=== PATIENT | male | born 1980 | race Caucasian/White ===

== ENCOUNTER 2016-12-17 08:15 | Inpatient (IN) | payer BC, OTHER ==
[2016-12-17] MEDS ORDERED: Sodium Chloride 0.9% 2.5 ML Syringe FLUSH PRN (08:24)
[2016-12-17] MEDS ORDERED: Sodium Chloride 0.9% 1,000 ML IV ONE (08:24)
[2016-12-17] MEDS ORDERED: Sodium Chloride 0.9% 10 ML Syringe FLUSH PRN (08:24)
[2016-12-17] MEDS ORDERED: Pantoprazole 40 MG Vial IVPUSH ONE (08:24)
[2016-12-17] MEDS ORDERED: Pantoprazole 80 MG in Sodium Chloride 0.9% 100 ML IV SCH (08:30)
--- NOTE | 2016-12-17 08:31 | EDM.PDOC ---
ED HPI GENERAL MEDICAL PROBLEM - General Chief Complaint: Abdominal Pain Stated Complaint: stomach ulcers Time Seen by Provider: 12/17/16 08:23 - History of Present Illness INITIAL COMMENTS - FREE TEXT/NARRATIVE: HISTORY AND PHYSICAL: History of present illness: The patient is a 36-year-old male with a history of peptic ulcer disease since 2006 and has had multiple endoscopies since that time and has had a blood transfusion and presents with complaints of black/maroon stools that started on Thursday, 3 days ago. The patient was seen in our clinic 2 days ago for similar symptoms and had a hemoglobin of 10.1. He has had multiple endoscopies at a variety of locations including [facility] in [place] here at [facility] and at the [facility]. He had a pill study performed earlier this year in April at [place] and says that his provider in the clinic has all those results. He is currently on a regimen of omeprazole and sucralfate. The patient does not drink caffeinated products or take aspirin based products and does not drink alcohol. The patient says that starting on Thursday he had dark stools which when they were in the water in the toilet had blood from them. He's had no nausea or vomiting and no abdominal pain with this. He's had no chest pain or shortness of breath but today he was very sweaty and then he had a brief syncopal event. Patient denies any trauma as a result of the syncopal event. Patient has only had one bowel movement a day until yesterday and he had 2 bowel movements and it is not diarrhea. Patient denies any neurosensory changes or weakness in his extremities but he says he looks very pale and he feels very weak in a generalized fashion. As a result of the syncope has no head neck or back pain and no extremity complaints. Currently in the ED laying in the bed he feels asymptomatic except for just some generalized weakness Review of systems: As per history of present illness and below otherwise all systems reviewed and negative. Past medical history: As per history of present illness and as reviewed below otherwise noncontributory. Surgical history: As per history of present illness and as reviewed below otherwise noncontributory. Social history: No reported history of drug or alcohol abuse. Family history: As per history of present illness and as reviewed below otherwise noncontributory. Physical exam: Gen.: Well-developed well-nourished man who is very tall and lean and very pale appearing. He speaking clearly and easily in the ED and vital signs have been noted by me. HEENT: Atraumatic, normocephalic, pupils reactive, negative for scleral icterus , there is profound conjunctival pallor, mucous membranes moist, throat clear, neck supple, nontender, trachea midline. There are no midline step-offs in his defects of the cervical spine Lungs: Clear to auscultation, breath sounds equal bilaterally, chest nontender. Heart: S1S2, regular rhythm and slightly tachycardic rate on my evaluation, negative for clicks, rubs, or JVD. Abdomen: Soft, nondistended, nontender. There is no rebound or guarding and bowel sounds are normoactive. There is absolutely no tenderness on palpation. Negative for masses or hepatosplenomegaly. Negative for costovertebral tenderness. Pelvis: Stable nontender. Genitourinary: Deferred. Rectal: Deferred. Extremities: Atraumatic, negative for cords or calf pain. Neurovascular unremarkable. Neuro: Awake, alert, oriented. Cranial nerves II through XII unremarkable. Cerebellum unremarkable. Motor and sensory unremarkable throughout. Exam nonfocal. Skin: Normal turgor, very pale in coloration and no rashes or lesions. There is no evidence of any soft tissue injury visible on the trunk or the extremities/ head and neck as a result of the syncope Back: There are no midline step-offs in his defects of the thoracic or lumbar spine and no evidence of any abrasions contusions or skin changes Diagnostics: EKG, CBC CMP INR troponin chest x-ray type and screen/type and cross Therapeutics: IV O2 monitor IV fluids protonic bolus protonic drip blood transfusion 0910: This case was discussed with our surgeon adoption services manager Dr. Keenan who feels that the patient can remain here, be admitted to the hospitalist service, received blood transfusion and he will plan on doing an endoscopy. He will do a formal consult later today. The patient is aware of this conversation and the care plan and is comfortable with that. I will discuss the case with the hospitalist. 0955: Dr. Narvaez is in the ER evaluating the patient and accepts them for inpatient admission to telemetry. Critical care time excluding procedures:31min Impression: Upper GI bleed with history of same, symptomatic anemia with syncope Definitive disposition and diagnosis as appropriate pending reevaluation and review of above. - Related Data Allergies Allergy/AdvReac Type Severity Reaction Status Date / Time No Known Allergies Allergy Verified 12/17/16 08:17 Home Meds: Home Meds Albuterol Sulfate [Proair Hfa] 2 puff INH QID PRN 04/22/16 [History] Omeprazole 40 mg PO DAILY 04/22/16 [History] Sucralfate 1 tab PO QID 04/22/16 [History] Past Medical History HEENT History: Reports: Other (See Below) Other HEENT History: wears glasses, has upper and lower dentures (does not wear ) Other Cardiovascular History: recent tachycardia from anemia Respiratory History: Reports: SOB, Other (See Below) Other Respiratory History: [id number] deficiency, has been SOB from recent anemia Gastrointestinal History: Reports: GERD, PUD Genitourinary History: Reports: None Musculoskeletal History: Reports: None Neurological History: Reports: None Psychiatric History: Reports: None Endocrine/Metabolic History: Reports: None Hematologic History: Reports: Anemia, Blood Transfusion(s) Other Hematologic History: recently had 2 units transfused Immunologic History: Reports: None Oncologic (Cancer) History: Reports: None Dermatologic History: Reports: None - Past Surgical History Head Surgeries/Procedures: Reports: None HEENT Surgical History: Reports: None Cardiovascular Surgical History: Reports: None Respiratory Surgical History: Reports: None GI Surgical History: Reports: EGD Male Surgical History: Reports: None Endocrine Surgical History: Reports: None Neurological Surgical History: Reports: None Musculoskeletal Surgical History: Reports: None Oncologic Surgical History: Reports: None Social & Family History - Tobacco Use Smoking Status *Q: Never Smoker - Recreational Drug Use Recreational Drug Use: No Drug Use in Last 12 Months: No ED ROS GENERAL - Review of Systems Review Of Systems: ROS reveals no pertinent complaints other than HPI. ED EXAM, GENERAL - Physical Exam Exam: See Below (See dictation) Course - Vital Signs Last Recorded V/S: Last Vital Signs Temp 36.0 C 12/17/16 08:18 Pulse 102 H 12/17/16 08:18 Resp 14 12/17/16 09:30 BP 111/65 12/17/16 09:30 Pulse Ox 100 12/17/16 09:30 - Orders/Labs/Meds Orders: Active Orders 24 hr Category Date Time Status Patient Status [ADT] Stat ADT 12/17/16 09:57 Ordered Cardiac Monitoring [RC] . DIRECTED Care 12/17/16 08:24 Active EKG Documentation Completion [RC] STAT Care 12/17/16 08:24 Active Notify Provider Consults [RC] ASDIRECTED Care 12/17/16 09:29 Active Oxygen Therapy, ED [RC] ASDIRECTED Care 12/17/16 08:24 Active Pulse Oximetry [RC] ASDIRECTED Care 12/17/16 08:24 Active Consult to Physician [CONS] Stat Cons 12/17/16 09:29 Active RED BLOOD CELLS LP [BBK] Stat Lab 12/17/16 08:45 Results TYPE AND SCREEN [BBK] Stat Lab 12/17/16 08:45 Results Pantoprazole [ProTONIX IV] 80 mg Med 12/17/16 09:15 Active Sodium Chloride 0.9% [Normal Saline] 100 ml IV Q10H Sodium Chloride 0.9% [Saline Flush] Med 12/17/16 08:24 Active 10 ml FLUSH ASDIRECTED PRN Sodium Chloride 0.9% [Saline Flush] Med 12/17/16 08:24 Active 2.5 ml FLUSH ASDIRECTED PRN Saline Lock Insert [OM.PC] Stat Oth 12/17/16 08:24 Ordered Transfuse Red Blood Cells [COMM] Stat Oth 12/17/16 09:09 Ordered Medication Orders Pantoprazole Sodium 80 mg/ (Sodium Chloride) 100 mls @ 10 mls/hr IV Q10H KOBE Last Admin: 12/17/16 09:23 Dose: 10 mls/hr Sodium Chloride (Saline Flush) 10 ml FLUSH ASDIRECTED PRN PRN Reason: Keep Vein Open Sodium Chloride (Saline Flush) 2.5 ml FLUSH ASDIRECTED PRN PRN Reason: Keep Vein Open Labs: Laboratory Tests 12/17/16 12/17/16 12/17/16 Range/Units 08:45 08:45 08:45 WBC 8.47 (4.0-11.0) K/uL RBC 2.16 L (4.50-5.90) M/uL Hgb 6.6 L (13.0-17.0) g/dL Hct 19.5 L (38.0-50.0) % MCV 90.3 (80.0-98.0) fL MCH 30.6 (27.0-32.0) pg MCHC 33.8 (31.0-37.0) g/dL RDW Std Deviation 45.7 (28.0-62.0) fl RDW Coeff of Gissell 14 (11.0-15.0) % Plt Count 244 (150-400) K/uL MPV 9.50 (7.40-12.00) fL Neut % (Auto) 60.3 (48.0-80.0) % Lymph % (Auto) 31.6 (16.0-40.0) % [place] % (Auto) 3.7 (0.0-15.0) % Eos % (Auto) 2.6 (0.0-7.0) % Baso % (Auto) 1.8 H (0.0-1.5) % Neut # (Auto) 5.1 (1.4-5.7) K/uL Lymph # (Auto) 2.7 H (0.6-2.4) K/uL [place] # (Auto) 0.3 (0.0-0.8) K/uL Eos # (Auto) 0.2 (0.0-0.7) K/uL Baso # (Auto) 0.2 H (0.0-0.1) K/uL Nucleated RBC % 0.0 /100WBC Nucleated RBCs # 0 K/uL INR 1.06 (0.86-1.11) Sodium 137 (136-146) mmol/L Potassium 3.7 (3.5-5.1) mmol/L Chloride 110 (98-110) mmol/L Carbon Dioxide 22 (21-31) mmol/L BUN 37 H (6.0-23.0) mg/dL Creatinine 0.9 (0.6-1.5) mg/dL Est Cr Clr Drug Dosing 138.23 mL/min Estimated GFR (MDRD) > 60.0 ml/min Glucose 157 H (60-110) mg/dL Calcium 7.9 L (8.8-10.8) mg/dL Total Bilirubin 0.2 (0.1-1.5) mg/dL AST 11 (5-40) IU/L ALT 10 (8-54) IU/L Alkaline Phosphatase 31 L (40-150) Troponin I (0.0-0.29) NG/ML Total Protein 5.4 L (6.0-8.0) g/dL Albumin 3.1 L (3.5-5.0) g/dL Globulin 2.3 (2.0-3.5) g/dL Albumin/Globulin Ratio 1.4 (1.3-2.8) Blood Type Antibody Screen Crossmatch 12/17/16 12/17/16 Range/Units 08:45 08:45 WBC (4.0-11.0) K/uL RBC (4.50-5.90) M/uL Hgb (13.0-17.0) g/dL Hct (38.0-50.0) % MCV (80.0-98.0) fL MCH (27.0-32.0) pg MCHC (31.0-37.0) g/dL RDW Std Deviation (28.0-62.0) fl RDW Coeff of Gissell (11.0-15.0) % Plt Count (150-400) K/uL MPV (7.40-12.00) fL Neut % (Auto) (48.0-80.0) % Lymph % (Auto) (16.0-40.0) % [place] % (Auto) (0.0-15.0) % Eos % (Auto) (0.0-7.0) % Baso % (Auto) (0.0-1.5) % Neut # (Auto) (1.4-5.7) K/uL Lymph # (Auto) (0.6-2.4) K/uL [place] # (Auto) (0.0-0.8) K/uL Eos # (Auto) (0.0-0.7) K/uL Baso # (Auto) (0.0-0.1) K/uL Nucleated RBC % /100WBC Nucleated RBCs # K/uL INR (0.86-1.11) Sodium (136-146) mmol/L Potassium (3.5-5.1) mmol/L Chloride (98-110) mmol/L Carbon Dioxide (21-31) mmol/L BUN (6.0-23.0) mg/dL Creatinine (0.6-1.5) mg/dL Est Cr Clr Drug Dosing mL/min Estimated GFR (MDRD) ml/min Glucose (60-110) mg/dL Calcium (8.8-10.8) mg/dL Total Bilirubin (0.1-1.5) mg/dL AST (5-40) IU/L ALT (8-54) IU/L Alkaline Phosphatase (40-150) Troponin I < 0.10 (0.0-0.29) NG/ML Total Protein (6.0-8.0) g/dL Albumin (3.5-5.0) g/dL Globulin (2.0-3.5) g/dL Albumin/Globulin Ratio (1.3-2.8) Blood Type A POSITIVE Antibody Screen NEGATIVE Crossmatch See Detail Meds: Medications Generic Name Dose Route Start Last Admin Trade Name Freq PRN Reason Stop Dose Admin Pantoprazole Sodium 80 mg/ 100 mls @ 10 mls/hr 12/17/16 09:15 12/17/16 09:23 Sodium Chloride IV 10 mls/hr Q10H KOBE Administration Sodium Chloride 10 ml 12/17/16 08:24 Saline Flush FLUSH ASDIRECTED PRN Keep Vein Open Sodium Chloride 2.5 ml 12/17/16 08:24 Saline Flush FLUSH ASDIRECTED PRN Keep Vein Open Discontinued Medications Generic Name Dose Route Start Last Admin Trade Name Freq PRN Reason Stop Dose Admin Sodium Chloride 1,000 mls @ 999 mls/hr 12/17/16 08:24 12/17/16 08:35 Normal Saline IV 12/17/16 09:24 999 mls/hr STAT ONE Administration Pantoprazole Sodium 80 mg/ 100 mls @ 10 mls/hr 12/17/16 08:30 Sodium Chloride IV .Continuous KOBE Pantoprazole Sodium 80 mg 12/17/16 08:24 12/17/16 09:01 Protonix Iv IVPUSH 12/17/16 08:25 80 mg .BOLUS ONE Administration Departure - Departure Time of Disposition: 10:00 Disposition: Admitted As Inpatient 68 Condition: Good Clinical Impression: Upper GI bleeding, Symptomatic anemia - Discharge Information Referrals: Leonid Cartagena MD [Primary Care Provider] - Forms: ED Department Discharge - My Orders Last 24 Hours: My Active Orders 12/17/16 08:24 Cardiac Monitoring [RC] . DIRECTED EKG Documentation Completion [RC] STAT Oxygen Therapy, ED [RC] ASDIRECTED Pulse Oximetry [RC] ASDIRECTED Sodium Chloride 0.9% [Saline Flush] 10 ml FLUSH ASDIRECTED PRN Sodium Chloride 0.9% [Saline Flush] 2.5 ml FLUSH ASDIRECTED PRN Saline Lock Insert [OM.PC] Stat 12/17/16 08:45 RED BLOOD CELLS LP [BBK] Stat TYPE AND SCREEN [BBK] Stat 12/17/16 09:09 Transfuse Red Blood Cells [COMM] Stat 12/17/16 09:15 Pantoprazole [ProTONIX IV] 80 mg Sodium Chloride 0.9% [Normal Saline] 100 ml IV Q10H 12/17/16 09:29 Notify Provider Consults [RC] ASDIRECTED Consult to Physician [CONS] Stat 12/17/16 09:57 Patient Status [ADT] Stat - Assessment/Plan Last 24 Hours: My Active Orders 12/17/16 08:24 Cardiac Monitoring [RC] . DIRECTED EKG Documentation Completion [RC] STAT Oxygen Therapy, ED [RC] ASDIRECTED Pulse Oximetry [RC] ASDIRECTED Sodium Chloride 0.9% [Saline Flush] 10 ml FLUSH ASDIRECTED PRN Sodium Chloride 0.9% [Saline Flush] 2.5 ml FLUSH ASDIRECTED PRN Saline Lock Insert [OM.PC] Stat 12/17/16 08:45 RED BLOOD CELLS LP [BBK] Stat TYPE AND SCREEN [BBK] Stat 12/17/16 09:09 Transfuse Red Blood Cells [COMM] Stat 12/17/16 09:15 Pantoprazole [ProTONIX IV] 80 mg Sodium Chloride 0.9% [Normal Saline] 100 ml IV Q10H 12/17/16 09:29 Notify Provider Consults [RC] ASDIRECTED Consult to Physician [CONS] Stat 12/17/16 09:57 Patient Status [ADT] Stat
[2016-12-17 09:15] LABS: CHLORIDE,CL 110 mmol/L (98-110); SODIUM,NA 137 mmol/L (136-146)
[2016-12-17] MEDS: Pantoprazole 80 MG in Sodium Chloride 0.9% 100 ML IV SCH ×2 (09:23→20:01)
--- NOTE | 2016-12-17 09:32 | CR ---
EXAMINATION: Portable chest radiograph. HISTORY: Shortness of breath. FINDINGS: The trachea is midline. The cardiomediastinal silhouette is within normal limits. No pulmonary infilt rates, effusions or pneumothorax. Osseous structures appear unremarkable. IMPRESSION: No acute cardiopulmonary process.
[2016-12-17] MEDS ORDERED: Morphine 2 MG/ML Syringe IVPUSH PRN (10:18)
[2016-12-17] MEDS ORDERED: oxyCODONE 5 MG Tab PO PRN (10:18)
[2016-12-17] MEDS ORDERED: Acetaminophen 325 MG Tab PO PRN (10:18)
[2016-12-17] MEDS ORDERED: Ondansetron 8 MG Tab.DIS PO PRN (10:18)
[2016-12-17] MEDS ORDERED: Temazepam 15 MG Cap PO PRN (10:18)
[2016-12-17] MEDS ORDERED: Albuterol 8 GM Inhaler INH PRN (10:22)
--- NOTE | 2016-12-17 10:44 | PCM.HP ---
H&P History of Present Illness - General Admit Problem/Dx: Admission Diagnosis/Problem Admission Diagnosis/Problem Upper gastrointestinal hemorrhage Hemoglobin 6.6 g/dL, syncopal episode Source of Information: Patient, Family History Limitations: Reports: No Limitations - History of Present Illness Onset of Symptoms: Reports: Gradual Duration of Symptoms: Reports: Day(s):, Chronic Location: Reports: Abdomen Severity: Mild Improves with: Reports: None Worsens with: Reports: None Associated Symptoms: Reports: Syncope, Other (Dizziness) - Related Data Allergies/Adverse Reactions: Allergies Allergy/AdvReac Type Severity Reaction Status Date / Time No Known Allergies Allergy Verified 12/17/16 08:17 Home Medications: Home Meds Albuterol Sulfate [Proair Hfa] 2 puff INH QID PRN 04/22/16 [History] Omeprazole 40 mg PO DAILY 04/22/16 [History] Sucralfate 1 tab PO QID 04/22/16 [History] Past Medical History HEENT History: Reports: Other (See Below) Other HEENT History: wears glasses, has upper and lower dentures (does not wear ) Cardiovascular History: Reports: None Other Cardiovascular History: recent tachycardia from anemia Respiratory History: Reports: SOB, Other (See Below) Other Respiratory History: [id number] deficiency, has been SOB from recent anemia Gastrointestinal History: Reports: GERD, GI Bleed, PUD Genitourinary History: Reports: None Musculoskeletal History: Reports: None Neurological History: Reports: None Psychiatric History: Reports: None Endocrine/Metabolic History: Reports: None Hematologic History: Reports: Anemia, Blood Transfusion(s) Other Hematologic History: recently had 2 units transfused Immunologic History: Reports: None Oncologic (Cancer) History: Reports: None Dermatologic History: Reports: None - Past Surgical History Head Surgeries/Procedures: Reports: None HEENT Surgical History: Reports: None Cardiovascular Surgical History: Reports: None Respiratory Surgical History: Reports: None GI Surgical History: Reports: EGD Male Surgical History: Reports: None Endocrine Surgical History: Reports: None Neurological Surgical History: Reports: None Musculoskeletal Surgical History: Reports: None Oncologic Surgical History: Reports: None Social & Family History - Family History Family Medical History: Noncontributory - Tobacco Use Smoking Status *Q: Never Smoker - Caffeine Use Caffeine Use: Reports: None - Alcohol Use Alcohol Use History: Yes Alcohol Use Frequency: Rarely - Recreational Drug Use Recreational Drug Use: No Drug Use in Last 12 Months: No H&P Review of Systems - Review of Systems: Review Of Systems: See Below General: Reports: Weakness, Fatigue HEENT: Reports: No Symptoms Pulmonary: Reports: Shortness of Breath Cardiovascular: Reports: Syncope Gastrointestinal: Reports: Black Stool, Bloody Stool, Decreased Appetite, Nausea Genitourinary: Reports: No Symptoms Musculoskeletal: Reports: No Symptoms Skin: Reports: No Symptoms Psychiatric: Reports: No Symptoms Neurological: Reports: Dizziness Hematologic/Lymphatic: Reports: Anemia, Easy Bleeding Immunologic: Reports: No Symptoms Exam - Exam Exam: See Below - Vital Signs Vital Signs: Last Vital Signs Temp 36.6 C 12/17/16 10:04 Pulse 102 H 12/17/16 08:18 Resp 18 12/17/16 10:04 BP 130/65 12/17/16 10:04 Pulse Ox 98 12/17/16 10:04 Weight: 90.718 kg - Exam Quality Assessment: No: Supplemental Oxygen General: Alert, Oriented, Cooperative HEENT: Conjunctiva Clear, EOMI. No: Mucosa Moist & [place] (Pale conjunctiva and oral mucosa) Neck: Supple, Trachea Midline Lungs: Clear to Auscultation, Normal Respiratory Effort Cardiovascular: Regular Rhythm, Tachycardia GI/Abdominal Exam: Normal Bowel Sounds, Soft, Non-Tender, No Distention Rectal (Males) Exam: Black Stool Back Exam: Normal Inspection Extremities: Normal Inspection, No Pedal Edema Skin: Warm, Dry Neurological: Cranial Nerves Intact Neuro Extensive - Mental Status: Alert, Oriented x3 Psychiatric: Alert, Normal Affect, Normal Mood - Patient Data Result Diagrams: 12/17/16 08:45 12/17/16 08:45 *Q Meaningful Use (ADM) - VTE *Q VTE Criteria *Q: VTE Pharmacological Contraindications *Q: Active Hemorrhage - Stroke *Q Stroke Criteria *Q: - AMI *Q AMI Criteria *Q: - Problem List (1) Duodenitis with hemorrhage SNOMED Code(s): 34574196 ICD Code: K29.81 - DUODENITIS WITH BLEEDING Status: Chronic Priority: High Current Visit: Yes (2) Chronic hemorrhagic anemia SNOMED Code(s): 685340242 ICD Code: D50.0 - IRON DEFICIENCY ANEMIA SECONDARY TO BLOOD LOSS (CHRONIC) Status: Chronic Priority: High Current Visit: Yes (3) Syncope and collapse SNOMED Code(s): 692522155 ICD Code: R55 - SYNCOPE AND COLLAPSE Status: Acute Priority: High Current Visit: Yes Problem List Initiated/Reviewed/Updated: Yes Orders Last 24hrs: Active Orders 24 hr Category Date Time Status Patient Status [ADT] Routine ADT 12/17/16 10:18 Active Oxygen Therapy [RC] PRN Care 12/17/16 10:18 Active Up With Assistance [RC] ASDIRECTED Care 12/17/16 10:18 Active VTE/DVT Education [RC] PER UNIT ROUTINE Care 12/17/16 10:18 Active Vital Signs [RC] Q4H Care 12/17/16 10:18 Active Clear Liquid Diet [DIET] Diet 12/17/16 Lunch Active Acetaminophen [Tylenol] Med 12/17/16 10:18 Active 650 mg PO Q4H PRN Albuterol [Ventolin HFA] Med 12/17/16 10:22 Active 8 gm INH QID PRN Morphine Med 12/17/16 10:18 Active 2 mg IVPUSH Q2H PRN Ondansetron [Zofran ODT] Med 12/17/16 10:18 Active 8 mg PO Q6H PRN Sodium Chloride 0.9% [Normal Saline] 1,000 ml Med 12/17/16 10:30 Active IV ASDIRECTED Temazepam [Restoril] Med 12/17/16 10:18 Active 15 mg PO BEDTIME PRN oxyCODONE Med 12/17/16 10:18 Active 5 mg PO Q4H PRN VTE Pharmacological Contraindications [AST] Per Unit Oth 12/17/16 10:18 Ordered Routine Resuscitation Status Routine Resus Stat 12/17/16 10:18 Ordered Medication Orders Acetaminophen (Tylenol) 650 mg PO Q4H PRN PRN Reason: Pain (Mild 1-3)/fever Albuterol (Ventolin Hfa) 8 gm INH QID PRN PRN Reason: Shortness of Breath Pantoprazole Sodium 80 mg/ (Sodium Chloride) 100 mls @ 10 mls/hr IV Q10H KOBE Last Admin: 12/17/16 09:23 Dose: 10 mls/hr Sodium Chloride (Normal Saline) 1,000 mls @ 125 mls/hr IV ASDIRECTED KOBE Morphine Sulfate (Morphine) 2 mg IVPUSH Q2H PRN PRN Reason: Pain (severe 7-10) Stop: 12/18/16 10:21 Ondansetron HCl (Zofran Odt) 8 mg PO Q6H PRN PRN Reason: nausea, able to take PO Oxycodone HCl (Oxycodone) 5 mg PO Q4H PRN PRN Reason: Pain (moderate 4-6) Sodium Chloride (Saline Flush) 10 ml FLUSH ASDIRECTED PRN PRN Reason: Keep Vein Open Sodium Chloride (Saline Flush) 2.5 ml FLUSH ASDIRECTED PRN PRN Reason: Keep Vein Open Temazepam (Restoril) 15 mg PO BEDTIME PRN PRN Reason: Sleep Assessment/Plan Comment:: The patient is a 36-year-old gentleman who is presented primarily out of concern for syncopal episode. The patient's hemoglobin on presentation to the emergency department was 6.6 g/dL. Surgeon, Dr. Keenan, has been consulted. The patient will be admitted as an inpatient on telemetry. He'll be transfused with 2 units packed red blood cells. The patient will likely have possible intervention as far as endoscopy and/or colonoscopy. The patient will be maintained on proton pump inhibitor drip. I have also reviewed the patient's previous capsule endoscopy which was obtained in April 2016 which shows severe ulcerative duodenitis in the first portion of duodenum with a healing ulcer. Patient says that he has been compliant with his medications. The patient will also be maintained on fluids and a clear liquid diet for now. The patient's hemoglobin and hematocrit will be monitored for further drops in his hemoglobin and he'll be transfused as needed.
--- NOTE | 2016-12-17 13:22 | PCM.CONS ---
H&P History of Present Illness - General Date of Service: 12/17/16 Admit Problem/Dx: Admission Diagnosis/Problem Admission Diagnosis/Problem Upper gastrointestinal hemorrhage Hemoglobin 6.6 g/dL, syncopal episode Source of Information: Patient History Limitations: Reports: No Limitations - History of Present Illness Onset of Symptoms: Reports: Gradual Symptom Onset Date: 12/14/16 Location: Reports: Abdomen Quality: Reports: Same as Previous Episode Severity: Moderate Improves with: Reports: None Worsens with: Reports: None Context: Reports: Sick Contact Associated Symptoms: Reports: Nausea/Vomiting, Other (Hematemesis, melena) - Related Data Allergies/Adverse Reactions: Allergies Allergy/AdvReac Type Severity Reaction Status Date / Time No Known Allergies Allergy Verified 12/17/16 08:17 Home Medications: Home Meds Albuterol Sulfate [Proair Hfa] 2 puff INH QID PRN 04/22/16 [History] Omeprazole 40 mg PO DAILY 04/22/16 [History] Sucralfate 1 tab PO QID 04/22/16 [History] Past Medical History HEENT History: Reports: Other (See Below) Other HEENT History: wears glasses, has upper and lower dentures (does not wear ) Cardiovascular History: Reports: None Other Cardiovascular History: recent tachycardia from anemia Respiratory History: Reports: SOB, Other (See Below) Other Respiratory History: Omwib-0-wavmsewttqt deficiency, has been SOB from recent anemia Gastrointestinal History: Reports: GERD, GI Bleed, PUD Genitourinary History: Reports: None Musculoskeletal History: Reports: None Neurological History: Reports: None Psychiatric History: Reports: None Endocrine/Metabolic History: Reports: None Hematologic History: Reports: Anemia, Blood Transfusion(s) Other Hematologic History: recently had 2 units transfused Immunologic History: Reports: None Oncologic (Cancer) History: Reports: None Dermatologic History: Reports: None - Past Surgical History Head Surgeries/Procedures: Reports: None HEENT Surgical History: Reports: None Cardiovascular Surgical History: Reports: None Respiratory Surgical History: Reports: None GI Surgical History: Reports: EGD Male Surgical History: Reports: None Endocrine Surgical History: Reports: None Neurological Surgical History: Reports: None Musculoskeletal Surgical History: Reports: None Oncologic Surgical History: Reports: None Social & Family History - Family History Family Medical History: Noncontributory - Tobacco Use Smoking Status *Q: Never Smoker - Caffeine Use Caffeine Use: Reports: None - Recreational Drug Use Recreational Drug Use: No Drug Use in Last 12 Months: No H&P Review of Systems - Review of Systems: Review Of Systems: See Below General: Reports: Weakness, Fatigue. Denies: Fever, Chills, Night Sweats, Diaphoresis, Weight Loss HEENT: Reports: No Symptoms Pulmonary: Reports: No Symptoms Cardiovascular: Reports: No Symptoms Gastrointestinal: Reports: Black Stool, Hematemesis, Nausea, Vomiting. Denies: Constipation, Diarrhea Genitourinary: Reports: No Symptoms Musculoskeletal: Reports: No Symptoms Skin: Reports: No Symptoms Psychiatric: Reports: No Symptoms Neurological: Reports: No Symptoms Hematologic/Lymphatic: Reports: Anemia Exam - Exam Exam: See Below - Vital Signs Vital Signs: Last Vital Signs Temp 98.4 F 12/17/16 10:19 Pulse 92 12/17/16 10:35 Resp 18 12/17/16 10:35 BP 122/60 12/17/16 10:35 Pulse Ox 100 12/17/16 10:35 Weight: 200 lb - Exam Quality Assessment: Supplemental Oxygen General: Alert, Oriented, Cooperative, Mild Distress HEENT: Conjunctiva Clear, Nares Patent. No: Scleral Icterus Neck: Supple, Trachea Midline Lungs: Clear to Auscultation, Normal Respiratory Effort Cardiovascular: Regular Rate, Regular Rhythm, Normal S1, Normal S2. No: Tachycardia, Systolic Murmur GI/Abdominal Exam: Normal Bowel Sounds, Soft, Non-Tender (Male) Exam: No Hernia Rectal (Males) Exam: Deferred Back Exam: Normal Inspection Extremities: Normal Inspection Peripheral Pulses: 4+: Posterior Tibial (L), Posterior Tibial (R), Dorsalis Pedis (L), Dorsalis Pedis (R) Skin: Warm, Dry, Intact Neurological: Cranial Nerves Intact Psychiatric: Alert, Normal Affect, Normal Mood - Patient Data Result Diagrams: 12/17/16 08:45 12/17/16 08:45 Consult PN Assessment/Plan Procedures: Procedures ASSAY OF IRON (05/07/16) BLOOD TRANSFUSION SERVICE (04/17/16) BLOOD TYPING SEROLOGIC ABO (04/17/16) BLOOD TYPING SEROLOGIC RH(D) (04/17/16) COMPATIBILITY TEST ANTIGLOB (04/17/16) COMPATIBILITY TEST INCUBATE (04/17/16) COMPATIBILITY TEST SPIN (04/17/16) COMPLETE CBC W/AUTO DIFF WBC (12/15/16) COMPREHEN METABOLIC PANEL (04/15/16) EGD BIOPSY SINGLE/MULTIPLE (04/25/16) HEMATOCRIT (04/25/16) HEMOGLOBIN (04/25/16) RBC ANTIBODY SCREEN (04/17/16) ROUTINE VENIPUNCTURE (12/15/16) (1) Symptomatic anemia SNOMED Code(s): 749707592 Code(s): D64.9 - ANEMIA, UNSPECIFIED Priority: High Current Visit: Yes (2) Syncope and collapse SNOMED Code(s): 820331223 Code(s): R55 - SYNCOPE AND COLLAPSE Priority: High Current Visit: Yes (3) Upper GI bleeding SNOMED Code(s): 47486515 Code(s): K92.2 - GASTROINTESTINAL HEMORRHAGE, UNSPECIFIED Priority: High Current Visit: Yes Problem List Initiated/Reviewed/Updated: Yes Plan: Esophagogastroduodenoscopy with biopsy. The operative procedure, along with the risks, including, but not limited to, bleeding, perforation, and the need for surgery were discussed with the patient who voices understanding, offers no questions and wishes to proceed.
[2016-12-17] MEDS: Sodium Chloride 0.9% 1,000 ML IV SCH (19:15)
[2016-12-18] MEDS: Sodium Chloride 0.9% 1,000 ML IV SCH ×2 (02:54→11:32)
[2016-12-18 05:04] LABS: CHLORIDE,CL 113 mmol/L (98-110); SODIUM,NA 142 mmol/L (136-146)
[2016-12-18] MEDS ORDERED: fentaNYL 100 MCG/2 ML SDV ONE (07:01)
[2016-12-18] MEDS ORDERED: Midazolam 1 MG/ML 2 ML SDV ONE (07:01)
[2016-12-18] MEDS ORDERED: Ondansetron 4 MG/2 ML SDV ONE (07:01)
[2016-12-18] MEDS ORDERED: Propofol 200 MG/20 ML SDV ONE ×2 (07:01→08:03)
[2016-12-18] MEDS: Pantoprazole 80 MG in Sodium Chloride 0.9% 100 ML IV SCH (08:01)
--- NOTE | 2016-12-18 08:18 | PCM.OPNOTE ---
- General Post-Op/Procedure Note Date of Surgery/Procedure: 12/18/16 Operative Procedure(s): Esophagogastroduodenoscopy with antral biopsies Pre Op Diagnosis: Upper GI bleed with anemia. Hematemesis. Melena. Post-Op Diagnosis: Mild proximal gastritis. No ulcerations. No blood in the stomach or duodenum. No Mai-Stevens tear. No esophageal varices. Anesthesia Technique: MAC (ASA II) Primary Surgeon: Johnson Keenan Senior Sales Administrator: Nora Romero Condition: Fair Free Text/Narrative:: Intake & Output 12/17/16 12/18/16 12/18/16 19:59 03:59 11:59 Intake Total 1500 1116 Output Total 1950 1075 Balance -450 41 Dictation [id number] CPT CODE 17931
--- NOTE | 2016-12-18 08:25 | PCM.PREANE ---
Preanesthetic Assessment - Procedure Proposed Procedure: EGD - Anesthesia/Transfusion/Family Hx Anesthesia History: Prior Anesthesia Without Reaction Family History of Anesthesia Reaction: No Transfusion History: Prior Transfusion Without Reaction Intubation History: Unknown - Review of Systems General: Weakness Pulmonary: Shortness of Breath, Other (alpha 1 antitrypsin) Cardiovascular: Other (anemic - undetermined etiology) Neurological: No Symptoms Other: Reports: None - Physical Assessment NPO Status Date: 12/17/16 NPO Status Time: 23:00 O2 Sat by Pulse Oximetry: 97 Respiratory Rate: 19 Temperature: 99.7 F Vital Signs: Last Vital Signs Temp 98.2 F 12/18/16 02:00 Pulse 86 12/18/16 02:00 Resp 19 12/18/16 02:00 BP 118/62 12/18/16 02:00 Pulse Ox 97 12/18/16 02:00 Height: 6 ft 3.2 in Weight: 200 lb ASA Class: 3 Mental Status: Alert & Oriented x3 Airway Class: Mallampati = 1 Dentition: Reports: Normal Dentition Thyro-Mental Finger Breadths: 3 Mouth Opening Finger Breadths: 3 ROM/Head Extension: Full Lungs: Clear to Auscultation, Normal Respiratory Effort Cardiovascular: Regular Rhythm, No Murmurs, Tachycardia - Lab Values: Laboratory Last Values WBC 5.68 K/uL (4.0-11.0) 12/18/16 04:30 RBC 2.35 M/uL (4.50-5.90) L 12/18/16 04:30 Hgb 7.2 g/dL (13.0-17.0) L 12/18/16 04:30 Hct 21.1 % (38.0-50.0) L 12/18/16 04:30 MCV 89.8 fL (80.0-98.0) 12/18/16 04:30 MCH 30.6 pg (27.0-32.0) 12/18/16 04:30 MCHC 34.1 g/dL (31.0-37.0) 12/18/16 04:30 RDW Std Deviation 46.7 fl (28.0-62.0) 12/18/16 04:30 RDW Coeff of Gissell 14 % (11.0-15.0) 12/18/16 04:30 Plt Count 189 K/uL (150-400) 12/18/16 04:30 MPV 9.50 fL (7.40-12.00) 12/18/16 04:30 Neut % (Auto) 53.1 % (48.0-80.0) 12/18/16 04:30 Lymph % (Auto) 31.5 % (16.0-40.0) 12/18/16 04:30 Snyder % (Auto) 7.2 % (0.0-15.0) 12/18/16 04:30 Eos % (Auto) 6.3 % (0.0-7.0) 12/18/16 04:30 Baso % (Auto) 1.9 % (0.0-1.5) H 12/18/16 04:30 Neut # (Auto) 3.0 K/uL (1.4-5.7) 12/18/16 04:30 Lymph # (Auto) 1.8 K/uL (0.6-2.4) 12/18/16 04:30 Snyder # (Auto) 0.4 K/uL (0.0-0.8) 12/18/16 04:30 Eos # (Auto) 0.4 K/uL (0.0-0.7) 12/18/16 04:30 Baso # (Auto) 0.1 K/uL (0.0-0.1) 12/18/16 04:30 Nucleated RBC % 0.0 /100WBC 12/18/16 04:30 Nucleated RBCs # 0 K/uL 12/18/16 04:30 INR 1.06 (0.86-1.11) 12/17/16 08:45 Sodium 142 mmol/L (136-146) 12/18/16 04:30 Potassium 3.8 mmol/L (3.5-5.1) 12/18/16 04:30 Chloride 113 mmol/L (98-110) H 12/18/16 04:30 Carbon Dioxide 25 mmol/L (21-31) 12/18/16 04:30 BUN 22 mg/dL (6.0-23.0) 12/18/16 04:30 Creatinine 0.9 mg/dL (0.6-1.5) 12/18/16 04:30 Est Cr Clr Drug Dosing 138.96 mL/min 12/18/16 04:30 Estimated GFR (MDRD) > 60.0 ml/min 12/18/16 04:30 Glucose 102 mg/dL (60-110) 12/18/16 04:30 Calcium 8.0 mg/dL (8.8-10.8) L 12/18/16 04:30 Total Bilirubin 0.2 mg/dL (0.1-1.5) 12/17/16 08:45 AST 11 IU/L (5-40) 12/17/16 08:45 ALT 10 IU/L (8-54) 12/17/16 08:45 Alkaline Phosphatase 31 (40-150) L 12/17/16 08:45 Troponin I < 0.10 NG/ML (0.0-0.29) 12/17/16 08:45 Total Protein 5.4 g/dL (6.0-8.0) L 12/17/16 08:45 Albumin 3.1 g/dL (3.5-5.0) L 12/17/16 08:45 Globulin 2.3 g/dL (2.0-3.5) 12/17/16 08:45 Albumin/Globulin Ratio 1.4 (1.3-2.8) 12/17/16 08:45 Blood Type A POSITIVE 12/17/16 08:45 Antibody Screen NEGATIVE 12/17/16 08:45 Crossmatch See Detail 12/17/16 08:45 - Allergies Allergies/Adverse Reactions: Allergies Allergy/AdvReac Type Severity Reaction Status Date / Time No Known Allergies Allergy Verified 12/17/16 08:17 - Blood Blood Available: Yes Product(s) Available: PRBC - Anesthesia Plan Pre-Op Medication Ordered: None - Acknowledgements Anesthesia Type Planned: MAC Pt an Appropriate Candidate for the Planned Anesthesia: Yes Alternatives and Risks of Anesthesia Discussed w Pt/Guardian: Yes Pt/Guardian Understands and Agrees with Anesthesia Plan: Yes PreAnesthesia Questionnaire HEENT History: Reports: Other (See Below) Other HEENT History: wears glasses, has upper and lower dentures (does not wear ) Cardiovascular History: Reports: None Other Cardiovascular History: recent tachycardia from anemia Respiratory History: Reports: SOB, Other (See Below) Other Respiratory History: Wdlxe-5-mdtfzoyalis deficiency, has been SOB from recent anemia Gastrointestinal History: Reports: GERD, GI Bleed, PUD Genitourinary History: Reports: None Musculoskeletal History: Reports: None Neurological History: Reports: None Psychiatric History: Reports: None Endocrine/Metabolic History: Reports: None Hematologic History: Reports: Anemia, Blood Transfusion(s) Other Hematologic History: recently had 2 units transfused Immunologic History: Reports: None Oncologic (Cancer) History: Reports: None Dermatologic History: Reports: None - Past Surgical History Head Surgeries/Procedures: Reports: None HEENT Surgical History: Reports: None Cardiovascular Surgical History: Reports: None Respiratory Surgical History: Reports: None GI Surgical History: Reports: EGD Male Surgical History: Reports: None Endocrine Surgical History: Reports: None Neurological Surgical History: Reports: None Musculoskeletal Surgical History: Reports: None Oncologic Surgical History: Reports: None - SUBSTANCE USE Smoking Status *Q: Never Smoker Recreational Drug Use History: No - HOME MEDS Home Medications: Home Meds Albuterol Sulfate [Proair Hfa] 2 puff INH QID PRN 04/22/16 [History] Omeprazole 40 mg PO DAILY 04/22/16 [History] Sucralfate 1 tab PO QID 04/22/16 [History] - CURRENT (IN HOUSE) MEDS Current Meds: Current Medications Acetaminophen (Tylenol) 650 mg PO Q4H PRN PRN Reason: Pain (Mild 1-3)/fever Last Admin: 12/17/16 20:22 Dose: 650 mg Albuterol (Ventolin Hfa) 8 gm INH QID PRN PRN Reason: Shortness of Breath Pantoprazole Sodium 80 mg/ (Sodium Chloride) 100 mls @ 10 mls/hr IV Q10H [facility] Last Admin: 12/18/16 08:01 Dose: Not Given Sodium Chloride (Normal Saline) 1,000 mls @ 125 mls/hr IV ASDIRECTED [facility] Last Admin: 12/18/16 02:54 Dose: 125 mls/hr Morphine Sulfate (Morphine) 2 mg IVPUSH Q2H PRN PRN Reason: Pain (severe 7-10) Ondansetron HCl (Zofran Odt) 8 mg PO Q6H PRN PRN Reason: nausea, able to take PO Oxycodone HCl (Oxycodone) 5 mg PO Q4H PRN PRN Reason: Pain (moderate 4-6) Sodium Chloride (Saline Flush) 10 ml FLUSH ASDIRECTED PRN PRN Reason: Keep Vein Open Sodium Chloride (Saline Flush) 2.5 ml FLUSH ASDIRECTED PRN PRN Reason: Keep Vein Open Temazepam (Restoril) 15 mg PO BEDTIME PRN PRN Reason: Sleep Discontinued Medications Fentanyl (Sublimaze) Confirm Administered Dose 100 mcg .ROUTE .STK-MED ONE Stop: 12/18/16 07:02 Sodium Chloride (Normal Saline) 1,000 mls @ 999 mls/hr IV STAT ONE Stop: 12/17/16 09:24 Last Admin: 12/17/16 08:35 Dose: 999 mls/hr Pantoprazole Sodium 80 mg/ (Sodium Chloride) 100 mls @ 10 mls/hr IV .Continuous KOBE Lidocaine HCl (Xylocaine-Mpf 1%) Confirm Administered Dose 5 ml .ROUTE .STK-MED ONE Stop: 12/18/16 07:04 Midazolam HCl (Versed 1 Mg/Ml) Confirm Administered Dose 2 mg .ROUTE .STK-MED ONE Stop: 12/18/16 07:02 Ondansetron HCl (Zofran) Confirm Administered Dose 4 mg .ROUTE .STK-MED ONE Stop: 12/18/16 07:02 Pantoprazole Sodium (Protonix Iv) 80 mg IVPUSH .BOLUS ONE Stop: 12/17/16 08:25 Last Admin: 12/17/16 09:01 Dose: 80 mg Propofol (Diprivan 20 Ml) Confirm Administered Dose 200 mg .ROUTE .STK-MED ONE Stop: 12/18/16 07:02 Propofol (Diprivan 20 Ml) Confirm Administered Dose 200 mg .ROUTE .STK-MED ONE Stop: 12/18/16 08:04
--- NOTE | 2016-12-18 08:28 | PCM.POSTAN ---
POST ANESTHESIA ASSESSMENT - MENTAL STATUS Mental Status: Alert, Oriented - RESPIRATORY Respiratory Status: Respiratory Rate WNL, Airway Patent, O2 Saturation Stable - CARDIOVASCULAR CV Status: Pulse Rate WNL, Blood Pressure Stable - GASTROINTESTINAL GI Status: No Symptoms - POST OP HYDRATION Hydration Status: Adequate & Stable
--- NOTE | 2016-12-18 08:45 | OR ---
SURGEON: Johnson Keenan M.D. DATE OF PROCEDURE: 12/18/2016 OPERATION PERFORMED: Esophagogastroduodenoscopy with biopsy. ANESTHESIA: MAC. ASA CLASSIFICATION: II. PREOPERATIVE DIAGNOSIS: Upper gastrointestinal bleed with hematemesis and anemia. POSTOPERATIVE DIAGNOSIS: Mild gastritis. No blood seen in the upper GI tract. DESCRIPTION OF PROCEDURE: The patient was taken to the endoscopy room, positioned on the endoscopy table in the supine position. Time-out was called for appropriate identification of the patient and procedure. Monitored anesthesia care was provided. The bite block was placed between the patient's teeth. The gastroscope was inserted through the bite block and advanced without difficulty into the duodenum where examination was now carried out in a retrograde fashion. No blood was seen anywhere in the upper GI tract. The duodenum shows no acute inflammatory changes or ulcerations. The stomach shows a very minimal gastritis, if any. Antral biopsies were again obtained to look for the presence of Helicobacter pylori. The gastroscope was retroflexed to visualize the proximal stomach, where there was a small area of gastritis, but no ulcerations were noted. Certainly, no blood was seen coming anywhere in the stomach. The greater and lesser curvatures were carefully visualized as the scope was withdrawn. The scope was retroflexed to visualize the proximal stomach as well. As the scope was withdrawn from the stomach, the air was aspirated. The GE junction was well defined and shows no acute inflammatory changes. There was no evidence of esophageal varices. I did not see any tear in the esophagus. The esophagus demonstrated good contractility. No mid or proximal lesions were seen. There was no evidence of a Zenker's diverticulum. The vocal cords were visualized as the scope was withdrawn and noted to move symmetrically. The gastroscope was then removed with the patient having tolerated the procedure well. He was taken to recovery room in stable condition. ROBEL / NATALIE /[id number]
--- NOTE | 2016-12-18 09:32 | PCM48HPAN ---
Post Anesthesia Note - EVALUATION WITHIN 48HRS OF ANESTHETIC Vital Signs in Normal Range: Yes Patient Participated in Evaluation: Yes Respiratory Function Stable: Yes Airway Patent: Yes Cardiovascular Function Stable: Yes Hydration Status Stable: Yes Pain Control Satisfactory: Yes Nausea and Vomiting Control Satisfactory: Yes Mental Status Recovered: Yes
--- NOTE | 2016-12-18 10:13 | PCM.DCSUM1 ---
Discharge Summary - Hospital Course Free Text/Narrative:: Syncope with symptomatic anemia and upper GI bleed. - Discharge Data Discharge Date: 12/18/16 Discharge Disposition: DC/Tfer to Acute Hospital 02 Condition: Fair - Discharge Diagnosis/Problem(s) (1) Duodenitis with hemorrhage SNOMED Code(s): 63716890 ICD Code: K29.81 - DUODENITIS WITH BLEEDING Status: Chronic Priority: High Current Visit: Yes (2) Chronic hemorrhagic anemia SNOMED Code(s): 429846263 ICD Code: D50.0 - IRON DEFICIENCY ANEMIA SECONDARY TO BLOOD LOSS (CHRONIC) Status: Chronic Priority: High Current Visit: Yes (3) Syncope and collapse SNOMED Code(s): 455283669 ICD Code: R55 - SYNCOPE AND COLLAPSE Status: Acute Priority: High Current Visit: Yes - Patient Summary/Data Operative Procedure(s) Performed: Esophagogastroduodenoscopy with antral biopsies Hospital Course: The patient is a 36-year-old gentleman who has a history of peptic ulcer disease and multiple endoscopies as well as endoscopic cameras had been presenting with dizziness or lightheadedness and also has a history of black and maroon stools. The patient came into the emergency department and was noted to have a hemoglobin of 6.6 g/dL. The patient has had a history of multiple endoscopies including colonoscopies at both [place] and at the [facility]. Nothing had been ever found. The patient on presentation was noted to have black tarry stools. Today the patient had an endoscopy performed by surgeon, Dr. Keenan, which did not show any specific evidence of possible bleed. The patient had been transfused with 2 units packed red blood cells and his hemoglobin has not responded appropriately. His current hemoglobin is at 7.2 g/ dL. Patient still is having some concerns about bleeding and dark tarry stools. The patient previously had a syncopal episode which had brought him to the emergency room initially. I've recommended that the patient be transferred to tertiary care center for specialized care. I spoken to [facility] in [place] and accepting physician is Dr. Chong. The patient is currently hemodynamically stable and his vital signs remained stable. The patient will be transported via ground ambulance to tertiary [facility]. - Patient Instructions Diet: NPO - Discharge Plan Home Medications: Home Meds Albuterol Sulfate [Proair Hfa] 2 puff INH QID PRN 04/22/16 [History] Omeprazole 40 mg PO DAILY 04/22/16 [History] Sucralfate 1 tab PO QID 04/22/16 [History] Forms: ED Department Discharge Referrals: Leonid Cartagena MD [Primary Care Provider] - - Discharge Summary/Plan Comment DC Time >30 min.: Yes - Patient Data Vitals - Most Recent: Last Vital Signs Temp 36.9 C 12/18/16 08:36 Pulse 83 12/18/16 08:36 Resp 20 12/18/16 08:36 BP 107/57 L 12/18/16 08:36 Pulse Ox 100 12/18/16 08:36 Weight - Most Recent: 90.718 kg I&O - Last 24 hours: Intake & Output 12/17/16 12/18/16 12/18/16 22:59 06:59 14:59 Intake Total 1487 1116 Output Total 1950 1075 Balance -463 41 Lab Results - Last 24 hrs: Laboratory Results - last 24 hr 12/18/16 12/18/16 Range/Units 04:30 04:30 WBC 5.68 (4.0-11.0) K/uL RBC 2.35 L (4.50-5.90) M/uL Hgb 7.2 L (13.0-17.0) g/dL Hct 21.1 L (38.0-50.0) % MCV 89.8 (80.0-98.0) fL MCH 30.6 (27.0-32.0) pg MCHC 34.1 (31.0-37.0) g/dL RDW Std Deviation 46.7 (28.0-62.0) fl RDW Coeff of Gissell 14 (11.0-15.0) % Plt Count 189 (150-400) K/uL MPV 9.50 (7.40-12.00) fL Neut % (Auto) 53.1 (48.0-80.0) % Lymph % (Auto) 31.5 (16.0-40.0) % Forrest % (Auto) 7.2 (0.0-15.0) % Eos % (Auto) 6.3 (0.0-7.0) % Baso % (Auto) 1.9 H (0.0-1.5) % Neut # (Auto) 3.0 (1.4-5.7) K/uL Lymph # (Auto) 1.8 (0.6-2.4) K/uL Forrest # (Auto) 0.4 (0.0-0.8) K/uL Eos # (Auto) 0.4 (0.0-0.7) K/uL Baso # (Auto) 0.1 (0.0-0.1) K/uL Nucleated RBC % 0.0 /100WBC Nucleated RBCs # 0 K/uL Sodium 142 (136-146) mmol/L Potassium 3.8 (3.5-5.1) mmol/L Chloride 113 H (98-110) mmol/L Carbon Dioxide 25 (21-31) mmol/L BUN 22 (6.0-23.0) mg/dL Creatinine 0.9 (0.6-1.5) mg/dL Est Cr Clr Drug Dosing 138.96 mL/min Estimated GFR (MDRD) > 60.0 ml/min Glucose 102 (60-110) mg/dL Calcium 8.0 L (8.8-10.8) mg/dL Med Orders - Current: Current Medications Acetaminophen (Tylenol) 650 mg PO Q4H PRN PRN Reason: Pain (Mild 1-3)/fever Last Admin: 12/17/16 20:22 Dose: 650 mg Albuterol (Ventolin Hfa) 8 gm INH QID PRN PRN Reason: Shortness of Breath Pantoprazole Sodium 80 mg/ (Sodium Chloride) 100 mls @ 10 mls/hr [facility]10H [facility] Last Admin: 12/18/16 08:01 Dose: Not Given Sodium Chloride (Normal Saline) 1,000 mls @ 125 mls/hr IV ASDIRECTED [facility] Last Admin: 12/18/16 02:54 Dose: 125 mls/hr Morphine Sulfate (Morphine) 2 mg IVPUSH Q2H PRN PRN Reason: Pain (severe 7-10) Ondansetron HCl (Zofran Odt) 8 mg PO Q6H PRN PRN Reason: nausea, able to take PO Oxycodone HCl (Oxycodone) 5 mg PO Q4H PRN PRN Reason: Pain (moderate 4-6) Sodium Chloride (Saline Flush) 10 ml FLUSH ASDIRECTED PRN PRN Reason: Keep Vein Open Sodium Chloride (Saline Flush) 2.5 ml FLUSH ASDIRECTED PRN PRN Reason: Keep Vein Open Temazepam (Restoril) 15 mg PO BEDTIME PRN PRN Reason: Sleep Discontinued Medications Fentanyl (Sublimaze) Confirm Administered Dose 100 mcg .ROUTE .STK-MED ONE Stop: 12/18/16 07:02 Sodium Chloride (Normal Saline) 1,000 mls @ 999 mls/hr IV STAT ONE Stop: 12/17/16 09:24 Last Admin: 12/17/16 08:35 Dose: 999 mls/hr Pantoprazole Sodium 80 mg/ (Sodium Chloride) 100 mls @ 10 mls/hr IV .Continuous KOBE Lidocaine HCl (Xylocaine-Mpf 1%) Confirm Administered Dose 5 ml .ROUTE .STK-MED ONE Stop: 12/18/16 07:04 Midazolam HCl (Versed 1 Mg/Ml) Confirm Administered Dose 2 mg .ROUTE .STK-MED ONE Stop: 12/18/16 07:02 Ondansetron HCl (Zofran) Confirm Administered Dose 4 mg .ROUTE .STK-MED ONE Stop: 12/18/16 07:02 Pantoprazole Sodium (Protonix Iv) 80 mg IVPUSH .BOLUS ONE Stop: 12/17/16 08:25 Last Admin: 12/17/16 09:01 Dose: 80 mg Propofol (Diprivan 20 Ml) Confirm Administered Dose 200 mg .ROUTE .STK-MED ONE Stop: 12/18/16 07:02 Propofol (Diprivan 20 Ml) Confirm Administered Dose 200 mg .ROUTE .STK-MED ONE Stop: 12/18/16 08:04 *Q Meaningful Use (DIS) - VTE *Q VTE Criteria *Q: VTE Pharmacological Contraindications *Q: Active Hemorrhage - Stroke *Q Stroke Criteria *Q: - AMI *Q AMI Criteria *Q:
[2016-12-18] MEDS ORDERED: Pantoprazole 80 MG in Sodium Chloride 0.9% 100 ML IV SCH (11:00)
[2016-12-18 14:07] VITALS: BP 119/62
== END 2016-12-18 11:40 | DRG 241 ==
LOC: MW.ED 08:15 → MW.MS 09:57
PROVIDERS: ADMIT Internal Medicine; ATTEND Internal Medicine
PROC: 30233N1 Transfusion of Nonautologous Red Blood Cells into Peripheral Vein, Percutaneous Approach (ICD-10-PCS; principal; 2016-12-17)
PROC: 0DB68ZX Excision of Stomach, Via Natural or Artificial Opening Endoscopic, Diagnostic (ICD-10-PCS; 2016-12-18)
DX: K29.81 Duodenitis with bleeding (principal); R55 Syncope and collapse; D50.0 Iron deficiency anemia secondary to blood loss (chronic); E88.01 Alpha-1-antitrypsin deficiency; K21.9 Gastro-esophageal reflux disease without esophagitis; Z79.899 Other long term (current) drug therapy
CPT/HCPCS: 00740; 36415; 36430; 71010; 71010-26; 80048; 80053; 84484; 85025; 85610; 86850; 86900; 86901; 86920; 86921; 86922; 88305; 88312; 96361; 96365; 96374; 99284; 99285-25; A9270-GY; C9113; J2250; J2405; J2704; J3010; J7030; J7040; P9016

== ENCOUNTER 2022-06-19 21:51 | Emergency (ER) | payer OTHER ==
[2022-06-19] MEDS ORDERED: Sodium Chloride 0.9% 2.5 ML Syringe FLUSH PRN (22:03)
[2022-06-19] MEDS ORDERED: Sodium Chloride 0.9% 10 ML Syringe FLUSH PRN (22:03)
[2022-06-19 23:12] LABS: CARBON DIOXIDE,CO2 27.6 mmol/L (21.0-32.0); POTASSIUM,K 3.9 mmol/L (3.5-5.1)
[2022-06-19] MEDS ORDERED: Alum Hydro/Mag Hydro/Simeth XS 15 ML, Lidocaine 2% 5 ML PO ONE ×2 (23:19)
[2022-06-20 00:17] VITALS: BP 142/89; PULSE 72
== END 2022-06-20 00:17 | disposition home or self-care (01) ==
LOC: MW.ED 21:51
DX: R10.13 Epigastric pain (principal)
CPT/HCPCS: 36415; 80053; 81003; 83690; 84484; 85025; 93005; 99284; A9270; J3490; 93010; 99283

== ENCOUNTER 2024-09-20 08:37 | Emergency (ER) | payer BC, OTHER ==
[2024-09-20] MEDS: Bupivacaine 0.25% 10 ML SDV INJECT ONE (09:00)
[2024-09-20] MEDS: Lidocaine 1% 5 ML VIAL INJECT ONE (09:00)
[2024-09-20 10:16] VITALS: BP 114/72; PULSE 62
== END 2024-09-20 10:16 | disposition home or self-care (01) ==
LOC: MW.ED 08:37
DX: S61.210A Laceration without foreign body of right index finger without damage to nail, initial encounter (principal); W26.8XXA Contact with other sharp object(s), not elsewhere classified, initial encounter
CPT/HCPCS: 73140; 99283; J0665; J2003; 99284